=== PATIENT | male | born 1995 | race Caucasian/White ===

== ENCOUNTER 2016-11-08 09:59 | Emergency (ER) | payer MEDICAID ==
[~2016-11-08] VITALS: Ht 175.3 cm; Wt 68.3 kg
[2016-11-08] MEDS ORDERED: SODIUM CHLORIDE FLUSH 10ML SYR IVF ONE (10:30)
[2016-11-08] MEDS ORDERED: ONDANSETRON 2MG/ML, 2ML IVPush ONE (10:30)
[2016-11-08] MEDS ORDERED: FAMOTIDINE 20 MG/2 ML IVP ONE (10:30)
[2016-11-08] MEDS ORDERED: SODIUM CHLORIDE 0.9% 1,000ML IVBOLUS ONE (10:30)
[2016-11-08 11:04] LABS: HEMATOCRIT 45.7 % (39.2-51.8); HEMOGLOBIN 15.5 g/dL (13.7-18.0); WHITE BLOOD COUNT 8.4 x10^3/uL (4.5-13.2)
[2016-11-08] MEDS ORDERED: MORPHINE SULFATE 4 MG/ML, 1ML ONE ×2 (11:09→11:51)
[2016-11-08] MEDS ORDERED: ONDANSETRON 2MG/ML, 2ML ONE (11:10)
[2016-11-08] MEDS ORDERED: FAMOTIDINE 20 MG/2 ML ONE (11:10)
[2016-11-08] MEDS: MORPHINE SULFATE 4 MG/ML, 1ML IVPush PRN ×2 (11:13→11:52)
[2016-11-08 11:17] LABS: ASPARTATE AMINO TRANSFERASE 14 U/L (15-37); BLOOD UREA NITROGEN 8 mg/dL (7-18)
[2016-11-08] MEDS ORDERED: PLEASE ENTER ALLERGIES MC SCH ×2 (11:30)
[2016-11-08 12:14] VITALS: BP 132/84
== END 2016-11-08 12:19 | disposition home or self-care (01) ==
LOC: ED 12:13
DX: R10.11 Right upper quadrant pain (principal); R10.13 Epigastric pain; R11.2 Nausea with vomiting, unspecified
CPT/HCPCS: 36415; 76700; 80053; 81001; 83690; 85025; 96361; 96374; 96375; 96376; 99285; J2405; J7030; S0028

== ENCOUNTER 2017-09-13 08:00 | Emergency (ER) | payer BC, MEDICAID, OTHER ==
[~2017-09-13] VITALS: Ht 177.8 cm; Wt 73.0 kg
[2017-09-13] MEDS ORDERED: ONDANSETRON 2MG/ML, 2ML ONE (08:51)
[2017-09-13] MEDS ORDERED: MORPHINE SULFATE 4 MG/ML, 1ML ONE ×2 (08:52→10:02)
[2017-09-13] MEDS ORDERED: PANTOPRAZOLE 40 MG IV ONE (08:52)
[2017-09-13 08:58] LABS: BASOPHILS # (AUTO) 0.06 x10^3/uL (0-0.1); BASOPHILS % (AUTO) 1 % (0-1); EOSINOPHILS % (AUTO) 5 % (1-7); LYMPHOCYTES # (AUTO) 1.64 x10^3/uL (1-3.4); LYMPHOCYTES % (AUTO) 15 % (22-44); MD NO; MEAN CORPUSCULAR HEMOGLOBIN 31.5 pg (27.5-34.5); MEAN CORPUSCULAR HGB CONC 33.9 g/dL (33.2-36.2); MEAN PLATELET VOLUME 7.8 fL (7.4-10.4); MONOCYTES # (AUTO) 0.42 x10^3/uL (0.2-0.8); MONOCYTES % (AUTO) 4 % (2-9); NEUTROPHILS # (AUTO) 8.12 x10^3/uL (1.8-6.8); NEUTROPHILS % (AUTO) 76 % (42-75); PLATELET COUNT 300 x10^3/uL (130-400); RED BLOOD COUNT 5.24 x10^6/uL (4.38-5.82); RED CELL DISTRIBUTION WIDTH 13.5 % (9.4-14.8)
[2017-09-13] MEDS ORDERED: ONDANSETRON 2MG/ML, 2ML IVPush ONE (09:00)
[2017-09-13] MEDS ORDERED: MORPHINE SULFATE 4 MG/ML, 1ML IVPush PRN (09:00)
[2017-09-13] MEDS ORDERED: PANTOPRAZOLE 40 MG IV IVPush ONE (09:00)
[2017-09-13 09:12] LABS: ALBUMIN 5.2 g/dL (3.4-5.0); ANION GAP 9 mmol/L (5-15); CALCIUM 10.2 mg/dL (8.5-10.1); CHLORIDE 107 mmol/L (98-107)
[2017-09-13 09:16] LABS: ALANINE AMINOTRANSFERASE 30 U/L (12-78); ALKALINE PHOSPHATASE 52 U/L (45-117); BILIRUBIN,TOTAL 0.8 mg/dL (0.2-1.0); CREATININE 1.18 mg/dL (0.7-1.3); TOTAL PROTEIN 8.7 g/dL (6.4-8.2)
[2017-09-13] MEDS ORDERED: OMNIPAQUE 350 MG/ML, 100ML BOTTLE ONE (09:46)
[2017-09-13] MEDS ORDERED: METOCLOPRAMIDE 5 MG/ML, 2ML IVPush ONE (10:00)
[2017-09-13] MEDS ORDERED: morphine SULFATE 10 MG/ML, 1ML IVPush ONE (10:00)
[2017-09-13] MEDS ORDERED: SODIUM CHLORIDE 0.9% 1,000ML IVBOLUS ONE (10:00)
[2017-09-13] MEDS ORDERED: METOCLOPRAMIDE 5 MG/ML, 2ML ONE (10:02)
[2017-09-13] MEDS ORDERED: DICYCLOMINE 10 MG/ML, 2ML ONE (10:20)
[2017-09-13 10:26] LABS: MICROSCOPIC AUTO
[2017-09-13 10:29] LABS: CULTURE INDICATED? NO
[2017-09-13] MEDS ORDERED: DICYCLOMINE 10 MG/ML, 2ML IM ONE (10:30)
[2017-09-13 11:06] VITALS: BP 137/82
[2017-09-13 11:52] LABS: AMPHETAMINE SCREEN, URINE Negative (Negative); BARBITURATE SCREEN, URINE Negative (Negative); BENZODIAZEPINE SCREEN, URINE Negative (Negative); CANNABINOID SCREEN, URINE Positive (Negative); COCAINE SCREEN, URINE Negative (Negative); METHADONE SCREEN, URINE Negative (Negative); OPIATE SCREEN, URINE Positive (Negative)
== END 2017-09-13 11:09 | disposition home or self-care (01) ==
LOC: ED 10:53
DX: R10.84 Generalized abdominal pain (principal); K92.1 Melena; Z79.899 Other long term (current) drug therapy
CPT/HCPCS: 36415; 74177; 80053; 80307; 81001; 83690; 85025; 86677; 96372; 96374; 96375; 96376; 99285; C9113; J0500; J2270; J2405; J2765; J7030; Q9967

== ENCOUNTER 2017-11-14 18:03 | Emergency (ER) | payer SELFPAY ==
[~2017-11-14] VITALS: Ht 175.3 cm; Wt 72.3 kg
[2017-11-14 18:06] VITALS: BP 136/80
[2017-11-14] MEDS ORDERED: PROPARACAINE OPHTH 0.5%, 15ML ONE (18:09)
== END 2017-11-14 19:13 | disposition home or self-care (01) ==
LOC: ED 18:35
DX: S05.01XA Injury of conjunctiva and corneal abrasion without foreign body, right eye, initial encounter (principal); K21.9 Gastro-esophageal reflux disease without esophagitis; W22.8XXA Striking against or struck by other objects, initial encounter; Y93.89 Activity, other specified; Y92.69 Other specified industrial and construction area as the place of occurrence of the external cause; Y99.0 Civilian activity done for income or pay
CPT/HCPCS: 99283

== ENCOUNTER 2018-01-09 09:56 | Emergency (ER) | payer BC ==
[~2018-01-09] VITALS: Ht 175.3 cm; Wt 70.6 kg
[2018-01-09 10:56] LABS: BASOPHILS # (AUTO) 0.06 x10^3/uL (0-0.1); BASOPHILS % (AUTO) 1 % (0-1); EOSINOPHILS # (AUTO) 0.02 x10^3/uL (0-0.4); EOSINOPHILS % (AUTO) 0 % (1-7); LYMPHOCYTES # (AUTO) 0.96 x10^3/uL (1-3.4); LYMPHOCYTES % (AUTO) 10 % (22-44); MD NO; MEAN CORPUSCULAR HEMOGLOBIN 31.9 pg (27.5-34.5); MEAN CORPUSCULAR HGB CONC 33.8 g/dL (33.2-36.2); MEAN CORPUSCULAR VOLUME 94.3 fL (81-97); MEAN PLATELET VOLUME 7.3 fL (7.4-10.4); MONOCYTES # (AUTO) 0.48 x10^3/uL (0.2-0.8); MONOCYTES % (AUTO) 5 % (2-9); NEUTROPHILS # (AUTO) 8.28 x10^3/uL (1.8-6.8); NEUTROPHILS % (AUTO) 85 % (42-75); PLATELET COUNT 301 x10^3/uL (130-400); RED BLOOD COUNT 4.88 x10^6/uL (4.38-5.82); RED CELL DISTRIBUTION WIDTH 13.1 % (9.4-14.8)
[2018-01-09] MEDS ORDERED: MAALOX/HYOSCYAMINE/LIDOCAINE 45 ML BTL ONE (10:58)
[2018-01-09] MEDS ORDERED: FAMOTIDINE 20 MG TABLET ONE (10:58)
[2018-01-09] MEDS ORDERED: METOCLOPRAMIDE 5 MG/ML, 2ML ONE (10:58)
[2018-01-09] MEDS ORDERED: METOCLOPRAMIDE 5 MG/ML, 2ML IM ONE (11:00)
[2018-01-09] MEDS ORDERED: FAMOTIDINE 20 MG TABLET PO ONE (11:00)
[2018-01-09 11:04] LABS: ALANINE AMINOTRANSFERASE 30 U/L (12-78); ALBUMIN 4.6 g/dL (3.4-5.0); ANION GAP 8 mmol/L (5-15); CALCIUM 9.3 mg/dL (8.5-10.1); CHLORIDE 107 mmol/L (98-107); CREATININE 1.01 mg/dL (0.7-1.3)
[2018-01-09 11:06] LABS: ALKALINE PHOSPHATASE 54 U/L (45-117); BILIRUBIN,TOTAL 0.7 mg/dL (0.2-1.0); TOTAL PROTEIN 7.8 g/dL (6.4-8.2)
[2018-01-09] MEDS ORDERED: DICYCLOMINE 10 MG/ML, 2ML ONE (11:12)
[2018-01-09] MEDS ORDERED: DICYCLOMINE 10 MG/ML, 2ML IM ONE (11:30)
[2018-01-09] MEDS: MAALOX/HYOSCYAMINE/LIDOCAINE 45 ML BTL PO ONE ×2 (11:35→11:41)
[2018-01-09 12:48] VITALS: BP 129/92
== END 2018-01-09 12:50 | disposition home or self-care (01) ==
LOC: ED 11:00
DX: G89.29 Other chronic pain (principal); R10.13 Epigastric pain; K21.9 Gastro-esophageal reflux disease without esophagitis; R11.2 Nausea with vomiting, unspecified
CPT/HCPCS: 36415; 80053; 83605; 83690; 85025; 96372; 99284; J0500; J2765

== ENCOUNTER 2018-08-29 06:06 | Emergency (ER) | payer BC, OTHER ==
[~2018-08-29] VITALS: Ht 172.7 cm; Wt 73.7 kg
--- NOTE | 2018-08-29 06:22 | NUR ---
pt in gown in [facility]. kareem palacios at for pt history and assessment. pt verbalizes understanding of poc and er process. pt has call light within reach at this time.
[2018-08-29] MEDS ORDERED: MAALOX/HYOSCYAMINE/LIDOCAINE 45 ML BTL PO ONE (06:30)
[2018-08-29] MEDS ORDERED: ONDANSETRON ODT 4 MG PO ONE (06:30)
--- NOTE | 2018-08-29 06:46 | NUR ---
pt medicated per mar.
[2018-08-29] MEDS ORDERED: ONDANSETRON ODT 4 MG ONE (06:47)
[2018-08-29] MEDS ORDERED: MAALOX/HYOSCYAMINE/LIDOCAINE 45 ML BTL ONE (06:47)
[2018-08-29 07:00] LABS: BASOPHILS # (AUTO) 0.02 x10^3/uL (0-0.1); BASOPHILS % (AUTO) 0 % (0-1); EOSINOPHILS # (AUTO) 0.03 x10^3/uL (0-0.4); EOSINOPHILS % (AUTO) 1 % (1-7); LYMPHOCYTES # (AUTO) 1.64 x10^3/uL (1-3.4); LYMPHOCYTES % (AUTO) 28 % (22-44); MD NO; MEAN CORPUSCULAR HEMOGLOBIN 31.8 pg (27.5-34.5); MEAN CORPUSCULAR HGB CONC 33.8 g/dL (33.2-36.2); MEAN PLATELET VOLUME 7.1 fL (7.4-10.4); MONOCYTES # (AUTO) 0.74 x10^3/uL (0.2-0.8); MONOCYTES % (AUTO) 13 % (2-9); NEUTROPHILS # (AUTO) 3.34 x10^3/uL (1.8-6.8); NEUTROPHILS % (AUTO) 58 % (42-75); PLATELET COUNT 200 x10^3/uL (130-400); RED BLOOD COUNT 5.13 x10^6/uL (4.38-5.82); RED CELL DISTRIBUTION WIDTH 13.3 % (9.4-14.8)
--- NOTE | 2018-08-29 07:01 | NUR ---
REPORT OBTAINED FROM MIKE. SNOW. ORAL. PT HAS FINISHED THE GI COCKTAIL AND DENIES ANY OTHER NEEDS. PT STATES HE "STILL FILLS A LITTLE NAUSEOUS".
[2018-08-29 07:11] LABS: ALANINE AMINOTRANSFERASE 30 U/L (12-78); ALBUMIN 4.1 g/dL (3.4-5.0); ANION GAP 5 mmol/L (5-15); CALCIUM 8.7 mg/dL (8.5-10.1); CHLORIDE 106 mmol/L (98-107); CREATININE 0.99 mg/dL (0.7-1.3)
[2018-08-29 07:13] LABS: ALKALINE PHOSPHATASE 47 U/L (45-117); BILIRUBIN,TOTAL 0.4 mg/dL (0.2-1.0); TOTAL PROTEIN 7.3 g/dL (6.4-8.2)
--- NOTE | 2018-08-29 07:43 | NUR ---
PT STATES THAT HE IS STILL NAUSEOUS AND VOMITED 200 CC OF EMESIS.
[2018-08-29] MEDS ORDERED: PROMETHAZINE 25 MG/ML, 1ML IM ONE (08:30)
[2018-08-29] MEDS ORDERED: PROMETHAZINE 25 MG/ML, 1ML ONE (08:42)
--- NOTE | 2018-08-29 08:51 | NUR ---
PT GIVEN MED FOR NAUSEA. PT REQUESTED PAIN MED FOR ABD PAIN OF 8/10, NOTE SENT TO MD. SNOW.
[2018-08-29] MEDS ORDERED: SODIUM CHLORIDE 0.9% 1,000ML IVBOLUS ONE (09:30)
[2018-08-29] MEDS ORDERED: SODIUM CHLORIDE FLUSH 10ML SYR IVF ONE (09:30)
[2018-08-29] MEDS ORDERED: MORPHINE SULFATE 4 MG/ML, 1ML IVPush PRN (09:30)
[2018-08-29] MEDS ORDERED: METOCLOPRAMIDE 5 MG/ML, 2ML IVPush ONE (09:30)
[2018-08-29] MEDS ORDERED: MORPHINE SULFATE 4 MG/ML, 1ML ONE (09:52)
[2018-08-29] MEDS ORDERED: METOCLOPRAMIDE 5 MG/ML, 2ML ONE (09:52)
--- NOTE | 2018-08-29 10:10 | NUR ---
IV PLACED, PT MEDICATED FOR PAIN AND NAUSEA. BOLUS RUNNING. PT INSTRUCTED NOT TO GET UP WITHOUT ASSISTANCE DUE TO NARCOTIC MEDS. PT VERBALIZED UNDERSTANDING.
--- NOTE | 2018-08-29 11:03 | NUR ---
PT REPORTS THAT HIS PAIN AND NAUSEA ARE SIGNIFIGANTLY PT REPORTS THAT HE HAS NOT VOMITED SINCE BEING GIVEN THE LAST NAUSEA MED. PAIN AT A 5/10 AND NAUSEA AT A 2/10. PO CHALLENGE IN PROGRESS. VSS. NAD.
[2018-08-29 12:07] VITALS: BP 109/66
--- NOTE | 2018-08-29 12:08 | NUR ---
I REPORTED TO MD THAT PT SYMPTOMS DECREASED AND HE STATES "I FEEL READY TO GO HOME". PT HAD PO CHALLENGE AND TOLERATED INTAKE. PT HAD SPRITE AND CRACKERS WITHOUT NAUSEA. PT UPDATE ON POC AND DISCHARGE. PT AGREES WITH POC.
== END 2018-08-29 12:17 ==
LOC: ED 11:55
DX: R11.2 Nausea with vomiting, unspecified (principal); J40 Bronchitis, not specified as acute or chronic; J02.8 Acute pharyngitis due to other specified organisms; B34.9 Viral infection, unspecified; M79.18 Myalgia, other site; K21.9 Gastro-esophageal reflux disease without esophagitis; R50.81 Fever presenting with conditions classified elsewhere
CPT/HCPCS: 36415; 71046; 74177; 80053; 83690; 85025; 87081; 87880; 96361; 96372; 96374; 96375; 99284; J2270; J2550; J2765; J7030

== ENCOUNTER 2019-04-23 19:36 | Emergency (ER) | payer OTHER ==
[~2019-04-23] VITALS: Ht 172.7 cm; Wt 69.6 kg
[2019-04-23] MEDS ORDERED: ONDANSETRON ODT 4 MG ONE (20:21)
[2019-04-23] MEDS ORDERED: ONDANSETRON ODT 4 MG PO ONE (20:30)
--- NOTE | 2019-04-23 20:42 | NUR ---
PT. TO ROOM FROM LOBBY AT THIS TIME.
[2019-04-23] MEDS ORDERED: OMEP10CA5 PO (21:03)
--- NOTE | 2019-04-23 21:04 | NUR ---
pt presnted with c/o n/v and abd pain, monitors applied, siderails up x2, call light within reach. provided pt with urinal for sample
--- NOTE | 2019-04-23 21:22 | NUR ---
iv site started, labs drawn. pt resting on gurney, stated he is unable to urinate for sample at this time, monitors applied, siderails up x2, call light within reach. awaiting lab results
[2019-04-23] MEDS ORDERED: SODIUM CHLORIDE 0.9% 1,000ML IVBOLUS ONE (21:30)
[2019-04-23] MEDS ORDERED: MORPHINE SULFATE 4 MG/ML, 1ML IVPush PRN (21:30)
[2019-04-23 21:33] LABS: BASOPHILS # (AUTO) 0.01 x10^3/uL (0-0.1); BASOPHILS % (AUTO) 0 % (0-1); EOSINOPHILS # (AUTO) 0.01 x10^3/uL (0-0.4); EOSINOPHILS % (AUTO) 0 % (1-7); LYMPHOCYTES % (AUTO) 7 % (22-44); MD NO; MEAN CORPUSCULAR HEMOGLOBIN 31.4 pg (27.5-34.5); MEAN CORPUSCULAR HGB CONC 34.1 g/dL (33.2-36.2); MEAN CORPUSCULAR VOLUME 92.3 fL (81-97); MEAN PLATELET VOLUME 7.7 fL (7.4-10.4); MONOCYTES # (AUTO) 0.17 x10^3/uL (0.2-0.8); MONOCYTES % (AUTO) 2 % (2-9); NEUTROPHILS # (AUTO) 7.78 x10^3/uL (1.8-6.8); NEUTROPHILS % (AUTO) 91 % (42-75); PLATELET COUNT 302 x10^3/uL (130-400); RED BLOOD COUNT 5.12 x10^6/uL (4.38-5.82); RED CELL DISTRIBUTION WIDTH 13.2 % (9.4-14.8)
[2019-04-23] MEDS ORDERED: MORPHINE SULFATE 4 MG/ML, 1ML ONE (21:45)
[2019-04-23 21:47] LABS: ALANINE AMINOTRANSFERASE 20 U/L (12-78); ALBUMIN 4.9 g/dL (3.4-5.0); ANION GAP 11 mmol/L (5-15); CALCIUM 9.6 mg/dL (8.5-10.1); CHLORIDE 108 mmol/L (98-107); CREATININE 1.06 mg/dL (0.7-1.3)
--- NOTE | 2019-04-23 21:47 | NUR ---
pt medicated per mar
[2019-04-23 21:49] VITALS: BP 133/85
[2019-04-23 21:49] LABS: ALKALINE PHOSPHATASE 59 U/L (45-117); BILIRUBIN,TOTAL 0.9 mg/dL (0.2-1.0); TOTAL PROTEIN 8.6 g/dL (6.4-8.2)
[2019-04-23] MEDS ORDERED: MAALOX/HYOSCYAMINE/LIDOCAINE 45 ML BTL ONE (22:31)
--- NOTE | 2019-04-23 22:33 | NUR ---
dr mendoza updated pt requesting gi cocktail for burning of esophagus, order received and pt medicated per mar
--- NOTE | 2019-04-23 22:35 | NUR ---
pt stated he continues to not be able to void at thsi time, erp updated
[2019-04-23] MEDS ORDERED: MAALOX/HYOSCYAMINE/LIDOCAINE 45 ML BTL PO ONE (23:00)
== END 2019-04-23 22:54 | disposition home or self-care (01) ==
LOC: ED 22:50
DX: R10.13 Epigastric pain (principal); K21.9 Gastro-esophageal reflux disease without esophagitis; R11.2 Nausea with vomiting, unspecified
CPT/HCPCS: 36415; 80053; 83690; 85025; 96361; 96374; 99283; J2270; J7030; Q0162